=== PATIENT | male | born 1965 | race African-American/Black ===

== ENCOUNTER 2018-05-21 05:31 | Emergency (ER) | payer OTHER ==
[~2018-05-21] VITALS: Ht 182.9 cm; Wt 140.6 kg
--- NOTE | ~2018-05-21 | EKG ---
[address] [address] ELECTROCARDIOGRAM REPORT Name: LULA LOUIE Room #: [facility]#: [id number] Admission: 05/21/18 Attend Phys: Discharge: Date of : 65 Report #: [id number] THIS REPORT FOR: //name// [facility] ED Test Date: 2018-05-21 Test Time: 05:43:36 Pat Name: LULA LOUIE Department: Room: Gender: On Site [employer] Evaluator: Victoriano SAWANT : 1965 Requested By: Sami Rivera Order Number: [id number] MD: Tony Moore Measurements Intervals [place] Rate: 74 P: 51 PA: 196 QRS: 23 QRSD: 102 T: -10 QT: 405 QTc: 450 Interpretive Statements Sinus rhythm Borderline T abnormalities, inferior leads Compared to ECG 01/05/2011 00:23:37 T-wave abnormality now present Myocardial infarct finding no longer present Electronically Signed On 05-21-2018 7:18:22 CDT by Tony Moore [email or web address] <ELECTRONICALLY SIGNED> By: Tony Moore MD 05/21/18 0718 2 2 Tony Moore MD /SHARMAINE
[~2018-05-21 05:31] MED LIST: BYETTA PEN 11 PENINJ SC; CRESTOR10 MG PO; FISH OIL 1,4001 EACH PO; GLUCOTROL10 MG PO; LISINOPRIL40 MG PO; LOPRESSOR 12.12.5 MG PO; SIMVASTATIN20 MG PO
[2018-05-21] MEDS ORDERED: EPLERENONE25 MG PO (05:53)
[2018-05-21 06:02] LABS: HEMATOCRIT 41.4 % (42.0-52.0); HEMOGLOBIN 13.8 gm/dL (14.0-18.0); MCHC 33.4 g/dL (28.0-37.0); MCV 83.8 fL (80.0-100.0); RBC 4.94 mil/uL (4.50-6.00); RDW 13.6 % (10.5-14.5); WBC 4.1 thou/uL (4.0-11.0)
[2018-05-21] MEDS ORDERED: ZESTORETIC 10-1 EACH PO (06:02)
[2018-05-21 06:12] LABS: ANION GAP 6 mmol/L (7-16); BUN 13 mg/dL (7-18); CALCIUM 9.4 mg/dL (8.5-10.1); CHLORIDE 101 mmol/L (98-107); CO2 28 mmol/L (21-32); CREATININE 1.1 mg/dL (0.7-1.3); GLUCOSE 160 mg/dL (74-106); POTASSIUM 3.7 mmol/L (3.5-5.1); SODIUM 135 mmol/L (136-145)
[2018-05-21 06:21] LABS: TROPONIN-I <0.06 ng/mL (<0.06)
[2018-05-21 09:29] VITALS: BP 115/73
== END 2018-05-21 09:30 | disposition home or self-care (01) ==
LOC: ER 05:31
PROVIDERS: Emergency Medicine
DX: R55 Syncope and collapse (principal)